=== PATIENT | female | born 1930 | race Caucasian/White ===

== ENCOUNTER 2018-04-09 12:15 | Inpatient (IN) | payer OTHER ==
[~2018-04-09] VITALS: Ht 152.4 cm; Wt 50.8 kg
[2018-04-17] MEDS ORDERED: LEVO-T75 MCG PO (10:30)
[2018-04-17] MEDS ORDERED: DOXAZOSIN MESYLA1 MG PO (10:31)
[2018-04-17] MEDS ORDERED: IRBESARTAN-HCT1 EAC1 PO (10:31)
[2018-04-17] MEDS ORDERED: TOPROL XL100 MG PO (10:31)
[2018-04-17] MEDS ORDERED: ZOCOR40 MG PO (10:31)
[2018-04-17] MEDS ORDERED: OMEPRAZOLE MAGN20 MG PO (10:32)
[2018-04-17] MEDS ORDERED: GLIMEPIRIDE4 MG PO (10:32)
[2018-04-24] MEDS ORDERED: ULTRACET PO (11:40)
[2018-04-24] MEDS ORDERED: BACTRIM DS TAB1 EACH PO (11:40)
== END 2018-04-24 15:42 | disposition home or self-care (01) | DRG 334 ==
LOC: SURH 04-22 06:10 → O/R 04-22 06:10 → SURG 04-22 07:00 → SURH 04-22 13:39 → SURG 04-22 14:15 → SURH 04-24 15:42
PROVIDERS: Surgery
PROC: 0DTP0ZZ Resection of Rectum, Open Approach (ICD-10-PCS; principal; 2018-04-22 07:00)
DX: K62.3 Rectal prolapse (principal); E03.8 Other specified hypothyroidism; E11.42 Type 2 diabetes mellitus with diabetic polyneuropathy; E11.22 Type 2 diabetes mellitus with diabetic chronic kidney disease; I13.10 Hypertensive heart and chronic kidney disease without heart failure, with stage 1 through stage 4 chronic kidney disease, or unspecified chronic kidney disease; N18.1 Chronic kidney disease, stage 1; H40.89 Other specified glaucoma; H54.62 Unqualified visual loss, left eye, normal vision right eye